=== PATIENT | male | born 1970 | race African-American/Black ===

== ENCOUNTER 2023-11-12 14:25 | Emergency (ER) | payer OTHER, SELFPAY ==
--- NOTE | ~2023-11-12 | XR_ITS ---
EXAMINATION: XR shoulder LT min 2V DATE: 11/12/2023 15:18 INDICATION: Left shoulder injury. TECHNIQUE: 4 views of left shoulder were obtained. COMPARISON: None. FINDINGS: Bone alignment is normal. No fracture. There is mild osteoarthritis of glenohumeral joint a nd severe osteoarthritis of acromioclavicular joint. IMPRESSION: 1. Polyarticular osteoarthritis. Reviewed, dictated and finalized at location E.
--- NOTE | ~2023-11-12 | XR_ITS ---
EXAMINATION: XR hand RT min 3V DATE: 11/12/2023 15:17 INDICATION: Right hand injury. TECHNIQUE: 4 views of right hand were obtained. COMPARISON: None. FINDINGS: Bone alignment is normal. There is a fracture of dorsal base of fourth distal phalanx with 4 mm displacement. There is moderate osteoarthritis of triscaphe joint and mild osteoarthritis of fir st carpometacarpal joint and many of the metacarpophalangeal joints and interphalangeal joints. There is moderate osteoarthritis of third distal interphalangeal joint. IMPRESSION: 1. Fracture of dorsal base of fourth distal phalanx. Reviewed, dictated and finalized at location E.
[2023-11-12 14:32] VITALS: BP 150/95; PULSE 83; RESP 18; TEMP 36.4; O2SAT 100
--- NOTE | 2023-11-12 17:30 | ED.GENADULT ---
HPI - General Adult General Chief complaint: Extremity Injury, Upper Stated complaint: shoulder, and finger injury Time Seen by Provider: 11/12/23 17:00 Source: patient Mode of arrival: ambulatory Limitations: no limitations History of Present Illness HPI narrative: This is a 53-year-old male who presents to the ED with chief complaint of right hand pain and left shoulder pain after initial injury on 10/18/2023. Patient reports he has had intermittent pain to the shoulder and 3rd and 4th digits of the right hand. He was trying to treat with NSAIDs at home but pain persisted he is here today. Denies numbness, weakness or any further sites of pain or injury. Related Data Allergies Allergy/AdvReac Type Severity Reaction Status Date / Time No Known Allergies Allergy Verified 11/12/23 16:29 Review of Systems Review of Systems: All systems as dictated in HPI Exam Narrative: GENERAL: Well-appearing, well-nourished, and in no acute distress. MSK: Left upper extremity: Difficulty with active range of motion of the shoulder. No deformity. Minimal tenderness. No bruising. Neurovascular intact distally. Right upper extremity: Mild tenderness to the distal right 4th digit. No deformity. Neurovascular intact distally. SKIN: Warm, dry, no rash. NEURO: Alert and oriented x3. No focal deficits. PSYCH: Normal mood and affect. Course Vital Signs Vital signs: Vital Signs Temperature 97.5 F L 11/12/23 14:32 Pulse Rate 83 11/12/23 14:32 Respiratory Rate 18 11/12/23 14:32 Blood Pressure 150/95 H 11/12/23 14:32 Pulse Oximetry 100 11/12/23 14:32 Temperature 97.5 F L 11/12/23 14:32 Pulse Rate 82 11/12/23 17:38 Respiratory Rate 16 11/12/23 17:38 Blood Pressure 146/92 H 11/12/23 17:38 Pulse Oximetry 98 11/12/23 17:38 Medical Decision Making [facility] Narrative Medical decision making narrative: This is a 53-year-old male who presents to the ED for chief complaint of right hand pain and left shoulder pain following injury that happened 1 month ago. Vitals are normal. Exam remarkable for the above. X-rays of the right shoulder show polyarticular arthritis but no fracture. X-rays of the hand do show 4th digit distal phalanx fracture. Patient was placed in finger splint for phalanx fracture. Hand surgeon referral given. Instructed follow-up with PCP and potentially Orthopedics regarding left shoulder pain. Pt will be discharged in stable condition. Return precautions given and supportive measures discussed. Pt is understanding and agreeable with plan for discharge and follow-up with PCP. Vital Signs Vital Signs: Vital Signs Temperature 97.5 F L 11/12/23 14:32 Pulse Rate 83 11/12/23 14:32 Respiratory Rate 18 11/12/23 14:32 Blood Pressure 150/95 H 11/12/23 14:32 Pulse Oximetry 100 11/12/23 14:32 Temperature 97.5 F L 11/12/23 14:32 Pulse Rate 82 11/12/23 17:38 Respiratory Rate 16 11/12/23 17:38 Blood Pressure 146/92 H 11/12/23 17:38 Pulse Oximetry 98 11/12/23 17:38 Discharge Plan Discharge Clinical Impression: Distal phalanx or phalanges, closed fracture, Injury of left shoulder Patient Disposition: Home, Self-Care Condition: Stable Instructions: Antibiotic Form Additional Instructions: Your exam shows fracture of your ring finger. Please use metal splint and follow-up with hand doctor.(Dr. Castaneda) Follow-up with your regular doctor regarding shoulder pain and he may potentially need PT/orthopedic treatment for this. Use regular Tylenol and ibuprofen for pain control. If you have any new or worsening symptoms please return to the ER for further evaluation. Follow-up/Referrals: Martin Castaneda MD [Physician] - Felecia,Hola Chao MD [Primary Care Provider] - Time of Disposition: 17:34
[2023-11-12 17:38] VITALS: BP 146/92; PULSE 82; RESP 16; O2SAT 98
== END 2023-11-12 17:39 | disposition home or self-care (01) ==
PROVIDERS: Emergency Provider Physician Assistant; PCP Internal Medicine
DX: S62.634A Displaced fracture of distal phalanx of right ring finger, initial encounter for closed fracture (principal); S49.92XA Unspecified injury of left shoulder and upper arm, initial encounter; M19.012 Primary osteoarthritis, left shoulder; W19.XXXA Unspecified fall, initial encounter
CPT/HCPCS: 29130; 73030; 73130; 99284